=== PATIENT | female | born 1980 ===

== ENCOUNTER 2021-01-16 15:07 | Emergency (ER) | payer OTHER ==
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
[2021-01-16] MEDS ORDERED: Sodium Chloride 0.9% 10 ML Syringe FLUSH PRN (16:11)
[2021-01-16] MEDS ORDERED: Sodium Chloride 0.9% 1,000 ML IV ONE (16:12)
[2021-01-16] MEDS ORDERED: Cephalexin 500 MG Cap PO ONE (19:39)
== END 2021-01-16 20:43 | disposition home or self-care (01) ==
LOC: FB.ED 15:07
DX: S30.1XXA Contusion of abdominal wall, initial encounter (principal); N39.0 Urinary tract infection, site not specified; F10.129 Alcohol abuse with intoxication, unspecified; E86.0 Dehydration; Z88.8 Allergy status to other drugs, medicaments and biological substances; Z72.0 Tobacco use; Y90.5 Blood alcohol level of 100-119 mg/100 ml; R29.6 Repeated falls; X58.XXXA Exposure to other specified factors, initial encounter
CPT/HCPCS: 36415; 70450; 80053; 80307; 81001; 81025; 83735; 85025; 85610; 85730; 87086; 87186; 99284-25; A9270-GY; J7030